=== PATIENT | female | born 1945 | race Caucasian/White ===

== ENCOUNTER 2016-07-06 07:51 | Emergency (ER) | payer MEDICARE, OTHER ==
[2016-07-06 08:04] VITALS: O2SAT 96
--- NOTE | 2016-07-06 08:32 | ERPHSYRPT ---
- History of Present Illness Time Seen by Provider: 07/06/16 08:22 Source: patient, family () Exam Limitations: no limitations Patient Subjective Stated Complaint: PT REPORTS HAVING RIGHT HIP REPLACEMENT 1 WEEK AGO-STATES THAT BETH A DAY AGO SHE NOTICED INCREASED SWELLING TO RIGHT LEG- DENIES FEVER-DENIES NUMBNESS OR TINLGING Triage Nursing Assessment: SWELLING NOTED TO RIGHT LEG-EXTREMITY IS PINK WRM ET DRY-WOUND WELL APPROXIMATED WITH NO DRAINAGE NOTED Physician History: Patient had right hip replacement 1 week ago; she is progressing slowly but noticed this morning there was increased pain and swelling in her right thigh and is concerned that she may have a DVT. No recent trauma. no fever or chills. No prior history of DVTs. Only taking aspirin for blood thinning. No recent falls or trauma. No other complaints. Method of Injury: unknown Occurred: this morning Quality: constant, aching, tightness Severity of Pain-Max: severe Severity of Pain-Current: moderate Lower Extremities Pain: hip: right (increased pain and tightness), thigh: right (increased pain and tightness) Modifying Factors: Improves With: movement (aggravates), pain medication (helps but hasn't taken today) Associated Symptoms: unable to bear weight, other (increased pain with movement passive or active) Allergies/Adverse Reactions: Penicillins Allergy (Verified 07/06/16 08:08) Home Medications: Aspirin 325 mg PO DAILY 07/06/16 [History] Hydrocodone Bit/Acetaminophen [[place] 10-325 Tablet] 1 each PO UD 07/06/16 [ History] Hx Tetanus, Diphtheria Vaccination/Date Given: No Hx Influenza Vaccination/Date Given: No Hx Pneumococcal Vaccination/Date Given: No Immunizations Up to Date: Yes - Review of Systems Constitutional: No Symptoms Eyes: No Symptoms Ears, Nose, & Throat: No Symptoms Respiratory: No Cough, No Dyspnea, No Wheezing Cardiac: No Chest Pain, No Palpitations, No Syncope, No Orthopnea Abdominal/Gastrointestinal: Constipation, No Abdominal Pain, No Nausea, No Vomiting, No Diarrhea Genitourinary Symptoms: No Symptoms Musculoskeletal: Joint Pain (right hip), No Back Pain, No Neck Pain, No Fall Skin: No Symptoms Neurological: No Symptoms Psychological: No Symptoms Endocrine: No Symptoms Hematologic/Lymphatic: No Symptoms Immunological/Allergic: No Symptoms - Past Medical History Pertinent Past Medical History: Yes Neurological History: No Pertinent History ENT History: No Pertinent History Cardiac History: High Cholesterol, Hypertension Respiratory History: No Pertinent History Endocrine Medical History: No Pertinent History Musculoskeletal History: Osteoarthritis GI Medical History: GERD, GI Bleed, Ulcer History: No Pertinent History Psycho-Social History: No Pertinent History Female Reproductive Disorders: No Pertinent History - Past Surgical History Past Surgical History: Yes Neuro Surgical History: No Pertinent History Cardiac: No Pertinent History Respiratory: No Pertinent History Gastrointestinal: No Pertinent History Genitourinary: No Pertinent History Musculoskeletal: No Pertinent History Female Surgical History: Hysterectomy, Tubal Ligation - Social History Smoking Status: Current every day smoker How long have you smoked: YRS Exposure to second hand smoke: Yes Alcohol Use: Socially Drug Use: none Patient Lives Alone: No Significant Family History: heart disease, hypertension - Female History Hx Now: No - Nursing Vital Signs Nursing Vital Signs: Initial Vital Signs Temperature 98.4 F Temperature Source Oral Pulse Rate 72 Respiratory Rate 16 Blood Pressure [] 120/72 Pain Intensity 3 - Physical Exam General Appearance: moderate distress (pain right hip and thigh), alert Eyes, Ears, Nose, Throat Exam: normal ENT inspection, TMs normal, pharynx normal , moist mucous membranes Neck Exam: normal inspection, non-tender, supple, full range of motion, No carotid bruit, No JVD Cardiovascular/Respiratory Exam: chest non-tender, normal breath sounds, regular rate/rhythm, heart sounds normal, no ecchymosis, no JVD, no M/R/G, no respiratory distress Gastrointestinal/Abdominal Exam: non-tender, soft, no organomegaly, No guarding Back Exam: normal inspection, normal range of motion, No CVA tenderness, No vertebral tenderness, No rash Hips Exam: right: limited range of motion (secondary to pain both active and passive), pain, swelling, other (incision healing well; no redness or drainage; slightly longer than left in total length), left: non-tender, normal inspection , normal range of motion, no evidence of injury Legs Exam: right leg: swelling (with respect to right), bilateral leg: non- tender, normal inspection, normal range of motion, no evidence of injury, other (no Homans sign left or right) Knees Exam: bilateral knee: non-tender, normal inspection, normal range of motion, no evidence of injury Ankle Exam: bilateral ankle: non-tender, normal inspection, normal range of motion, no evidence of injury Foot Exam: bilateral foot: non-tender, normal inspection, normal range of motion , no evidence of injury Neuro/Tendon Exam: normal sensation, normal motor functions, normal tendon functions, responds to pain Mental Status Exam: alert, oriented x 3, cooperative Skin Exam: normal color, warm, dry, No rash, No petechiae SpO2 Interpretation: normal SpO2: 96 Oxygen Delivery: Room Air - Course Nursing assessment & vital signs reviewed: Yes - Radiology Exams Right Hip X-ray Interpretation: Reviewed by me, Teleradiologist Report, Negative (post op changes only) Pelvis X-ray Interpretation: Reviewed by me, Teleradiologist Report, Negative, No Fracture, Other (post op changes on right; left with DJD) - Radiology Ultrasound Exam Right Venous Lower Extremity Ultrasound: tele radiology report, negative, Other (negative for DVT) Ordered Tests: Active Orders 24 hr Category Date Time Status Re-Check Vital Signs STAT Care 07/06/16 08:22 Active Regular Diet Diet 07/06/16 Lunch Active HIP UNI (2V) INCL PEL IF DONE Stat Exams 07/06/16 08:23 Completed VENOUS UNILAT/LIMITED EXTREMIT [US] Stat Exams 07/06/16 08:24 Completed BMP Stat Lab 07/06/16 09:17 Completed CBC W DIFF Stat Lab 07/06/16 09:17 Completed PROTIME WITH INR Stat Lab 07/06/16 09:17 Completed Lab/Rad Data: Laboratory Result Diagrams 07/06/16 09:17 07/06/16 09:17 Laboratory Results 07/06/16 07/06/16 07/06/16 Range/Units 09:17 09:17 09:17 WBC 9.1 (4.0-10.5) K/mm3 RBC 2.87 L (4.1-5.4) M/mm3 Hgb 8.7 L (12.0-16.0) gm/dl Hct 27.7 L (35-47) % MCV 96.5 (78-100) fl MCH 30.3 (26-32) pg MCHC 31.4 L (32-36) g/dl RDW 15.7 H (11.5-14.0) % Plt Count 300 (150-450) K/mm3 MPV 9.9 H (6-9.5) fl Gran % 61.4 (36.0-66.0) % Lymphocytes % 19.4 L (24.0-44.0) % Monocytes % 15.7 H (0.0-12.0) % Eosinophils % 3.4 (0.00-5.0) % Basophils % 0.1 (0.0-0.4) % Basophils # 0.01 (0-0.4) INR 1.06 (0.8-3.0) Sodium 139 (136-145) mEq/L Potassium 3.8 (3.5-5.1) mEq/L Chloride 100 (98-107) mEq/L Carbon Dioxide 29.3 (21-32) mEq/L Anion Gap 13.8 (5-15) MEQ/L BUN 14 (9-20) mg/dL Creatinine 1.05 (0.55-1.30) mg/dl Estimated GFR 55 ML/MIN Glucose 90 (70-110) MG/DL Calcium 8.7 (8.5-10.1) mg/dL reviewed - Progress Progress: improved, re-examined (After x-ray and ultrasound) Progress Note: 07/06/16 08:36 Discussed evaluation with patient; we'll get some labs x-ray and ultra; patient had not taken her medication and took it here this am; she did not want more at this time; will recheck after xr and US; labs pending; at bedside 07/06/16 09:20 rechecked after XR and Us and results shared; breakfast ordered and patient ambulated in chair for comfort; lab pending; will recheck 07/06/16 10:15 rechecked and reviewed results; with patient and family; treatment plan and d/c instructions given Counseled pt/family regarding: lab results, diagnosis, need for follow-up, rad results, smoking cessation - Departure Time of Disposition: 10:16 Departure Disposition: Home Clinical Impression: Joint pain of right hip on movement Condition: Stable Critical Care Time: No Referrals: CLINTON LOZA [Primary Care Provider] - Additional Instructions: continue post op instructions Follow-up with family doctor as directed. Call for appointment. Return if any problems. If you smoke please stop. Call or follow up with your family doctor for assistance if you need it to stop. Please wear your seatbelt when driving. Have a nice day. Thank you for allowing us to participate in your care today. :o) Dr Addy Martinez
--- NOTE | 2016-07-06 09:02 | XRAY ---
Indication: Right hip pain, swelling, and tightness following surgery last week. 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 Also osteopenia, moderate left hip degenerative changes, lower lumbar degenerative changes, and scattered vascular calcifications. Nothing acute.
[2016-07-06 09:20] LABS: BASOPHIL % 0.1 % (0.0-0.4); Eosinophil % 3.4 % (0.00-5.0); Granulocytes % 61.4 % (36.0-66.0); Lymphocytes % 19.4 % (24.0-44.0); Mean Cell Volume 96.5 fl (78-100); Mean Corpuscular Hemoglobin 30.3 pg (26-32); Mean Platelet Volume 9.9 fl (6-9.5); Monocytes % 15.7 % (0.0-12.0); Platelet Count 300 K/mm3 (150-450); Red Blood Count 2.87 M/mm3 (4.1-5.4); Red Cell Distribution Width 15.7 % (11.5-14.0); White Blood Count 9.1 K/mm3 (4.0-10.5)
--- NOTE | 2016-07-06 09:34 | XRAY ---
Indication: Postop swelling. Two-dimensional sonogram and color Doppler imaging of the major venous vessels of the right leg was performed. Comparison: None No thrombus seen in the examined deep venous vessels of the right leg including greater saphenous vein. Veins demonstrate normal compressibility. Venous waveforms are normal with and without augmentation. Impression: Right leg negative for DVT.
[2016-07-06 09:46] LABS: INR 1.06 (0.8-3.0); PROTIME 11.9 SECONDS (9.95-12.35)
[2016-07-06 09:50] LABS: ANION GAP 13.8 MEQ/L (5-15); Carbon Dioxide 29.3 mEq/L (21-32); Potassium 3.8 mEq/L (3.5-5.1)
[2016-07-06 10:04] VITALS: BP 120/72; PULSE 72
== END 2016-07-06 10:45 | disposition home or self-care (01) ==
LOC: ED 07:51
DX: M25.551 Pain in right hip (principal); Z96.641 Presence of right artificial hip joint
CPT/HCPCS: 36415; 73502; 80048; 85025; 85610; 93971; 99284

== ENCOUNTER 2016-07-16 08:50 | Emergency (ER) | payer MEDICARE, OTHER ==
[2016-07-16 09:12] VITALS: BP 155/66; O2SAT 97
--- NOTE | 2016-07-16 09:29 | ERPHSYRPT ---
- History of Present Illness Time Seen by Provider: 07/16/16 09:15 Source: patient Exam Limitations: clinical condition Patient Subjective Stated Complaint: pt arrived from home c/o nausea and frequency of urine for a couple days with back pain. she thinks she has a uti. has been taking nausea meds , and able to eat some Triage Nursing Assessment: pt alert, walked to room with walker, resp easy, skin w/d pale. dressing to right hip. slight edema to bothe legs which pt states has been normal for her Physician History: PATIENT COMPLAINS OF NAUSEA, SLIGHT BACK ACHE ASSOCIATED WITH URGENCY FOR 2-3 DAYS. DENIES FREQUENCY, DYSURIA OR HEMATURIA. Timing/Duration: day(s) Activites at Onset: none Quality: aching Onset Location: low back pain Pain Radiation: none Severity of Pain-Max: mild Severity of Pain-Current: mild Modifying Factors: Improves With: urinating Associated Symptoms: nausea, lower back pain Allergies/Adverse Reactions: Penicillins Allergy (Verified 07/16/16 09:00) Home Medications: Aspirin 325 mg PO DAILY 07/06/16 [History] Codeine Phosphate/APAP #3 [Tylenol #3 Tablet] 1 ea QID 07/16/16 [History] Hx Tetanus, Diphtheria Vaccination/Date Given: No Hx Influenza Vaccination/Date Given: No Hx Pneumococcal Vaccination/Date Given: No - Review of Systems Constitutional: No Fever, No Chills Eyes: No Symptoms Ears, Nose, & Throat: No Symptoms Respiratory: No Symptoms, No Cough, No Dyspnea Cardiac: No Symptoms, No Chest Pain, No Edema, No Syncope Abdominal/Gastrointestinal: No Symptoms, No Abdominal Pain, No Nausea, No Vomiting, No Diarrhea Genitourinary Symptoms: Urgency, Other (LOW BACK PAIN), No Dysuria Musculoskeletal: No Back Pain, No Neck Pain Skin: No Rash Neurological: No Dizziness, No Focal Weakness, No Sensory Changes Psychological: No Symptoms Endocrine: No Symptoms All Other Systems: Reviewed and Negative - Past Medical History Pertinent Past Medical History: Yes Neurological History: No Pertinent History ENT History: No Pertinent History Cardiac History: High Cholesterol, Hypertension Respiratory History: No Pertinent History Endocrine Medical History: No Pertinent History Musculoskeletal History: Osteoarthritis GI Medical History: GERD, GI Bleed, Ulcer History: No Pertinent History Psycho-Social History: No Pertinent History Female Reproductive Disorders: No Pertinent History - Past Surgical History Past Surgical History: Yes Neuro Surgical History: No Pertinent History Cardiac: No Pertinent History Respiratory: No Pertinent History Gastrointestinal: No Pertinent History Genitourinary: No Pertinent History Musculoskeletal: No Pertinent History Female Surgical History: Hysterectomy, Tubal Ligation - Social History Smoking Status: Current every day smoker How long have you smoked: YRS Exposure to second hand smoke: No Alcohol Use: Socially Drug Use: none Patient Lives Alone: No Significant Family History: heart disease, hypertension - Female History Hx Last Menstrual Period: post Hx Now: No - Nursing Vital Signs Nursing Vital Signs: Initial Vital Signs Temperature 97.7 F Temperature Source Oral Pulse Rate 76 Respiratory Rate 16 Blood Pressure [Right Arm] 155/66 Pain Intensity 3 - Physical Exam General Appearance: no apparent distress, alert Eye Exam: PERRL/EOMI, eyes nml inspection Ears, Nose, Throat Exam: normal ENT inspection, TMs normal, pharynx normal, moist mucous membranes Neck Exam: normal inspection, non-tender, supple, full range of motion Respiratory Exam: normal breath sounds, lungs clear, No respiratory distress Cardiovascular Exam: regular rate/rhythm, normal heart sounds, normal peripheral pulses Gastrointestinal/Abdomen Exam: soft, normal bowel sounds (NONTENDER), No tenderness, No mass Back Exam: normal inspection, normal range of motion, No CVA tenderness, No vertebral tenderness Extremity Exam: normal inspection, normal range of motion, pelvis stable Neurologic Exam: alert, oriented x 3, cooperative, veneer sander II-XII nml as tested, normal mood/affect, sensation nml, No motor deficits Skin Exam: normal color, warm, dry Lymphatic Exam: No adenopathy SpO2 Interpretation: normal SpO2: 97 Oxygen Delivery: Room Air Ordered Tests: Active Orders 24 hr Category Date Time Status Clean Catch Urine Specimen STAT Care 07/16/16 09:26 Active UA Stat Lab 07/16/16 09:30 Completed Lab/Rad Data: Laboratory Results 07/16/16 Range/Units 09:30 Ur Collection Type CLEAN CATCH Urine Color YELLOW (YELLOW) Urine Appearance CLEAR (CLEAR) Urine pH 6.5 (5-6) Ur Specific [place] 1.015 (1.005-1.025) Urine Protein NEGATIVE (Negative) Urine Glucose (UA) NEGATIVE (NEGATIVE) mg/dL Urine Ketones NEGATIVE (NEGATIVE) Urine Nitrite NEGATIVE (NEGATIVE) Urine Bilirubin NEGATIVE (NEGATIVE) Urine Urobilinogen 0.2 (0-1) mg/dL Urine WBC (Auto) NEGATIVE (NEGATIVE) Urine RBC (Auto) NEGATIVE (0-5) Rohan/ul Specimen Received [id number] - Progress Progress Note: 07/16/16 10:19 URINE IS NEGATIVE FOR INFECTION Blood Culture(s) Obtained: No Antibiotics given: No Counseled pt/family regarding: lab results, need for follow-up - Departure Time of Disposition: 10:20 Departure Disposition: Home (1020) Clinical Impression: Urgency incontinence Condition: Stable Critical Care Time: No Additional Instructions: FOLLOWUP WITH YOUR FAMILY PHYSICIAN FOR EVALUATION AND REFERRAL TO UROLOGIST. RETURN TO EMERGENCY FOR ONSET OF FEVER AND PERSISTENT URINARY SYMPTOMS.
[2016-07-16 10:00] LABS: COMPLETE URINE MICROSCOPIC? NO; Collection Type CLEAN CATCH; Ph 6.5 (5-6)
[2016-07-16 10:34] VITALS: PULSE 72
== END 2016-07-16 10:32 | disposition home or self-care (01) ==
LOC: ED 08:50
DX: R32 Unspecified urinary incontinence (principal); R11.0 Nausea; M54.5 Low back pain
CPT/HCPCS: 81002; 99283

== ENCOUNTER 2018-11-01 05:51 | Day surgery (SDC) | payer MEDICARE, OTHER ==
[2018-11-01] MEDS ORDERED: Lactated Ringers 1,000 ML IV SCH (07:00)
[2018-11-01] MEDS ORDERED: DIPRIVAN 200 MG/20 ML IV ONE ×2 (07:23→07:46)
[2018-11-01] MEDS ORDERED: Ketamine HCl 50 MG/ML ONE (07:24)
[2018-11-01] MEDS ORDERED: SUBLIMAZE 100 MCG/2 ML ONE (07:56)
--- NOTE | 2018-11-01 09:13 | OP ---
SURGERY DATE/TIME: 11/01/2018729 PREOPERATIVE DIAGNOSIS: Dyspepsia, bloating and abdominal pain. POSTOPERATIVE DIAGNOSES: 1) Esophagitis. 2) Rush's esophagus. 3) Esophageal ulcer. 4) Gastritis. 5) Duodenitis. 6) Sigmoid diverticulosis, mild. PROCEDURES: 1) Esophagogastroduodenoscopy with cold forceps biopsy. 2) Colonoscopy. SURGEON: Dr. Orellana. ANESTHESIA: Medications were given by the anesthesia department. HISTORY: The patient is a 72 year old white female presenting now for endoscopic evaluation. She reports complaints of abdominal pain, discomfort and bloating despite medication. The patient also has never had a colon examination performed. She desired to have the colon performed while we also did the upper examination. The patient was appraised of the risks of the procedure including the risk of perforation, phlebitis, untoward reaction to medication, bleeding and missed lesions. The patient verbalized her understanding and desired to have the procedure performed. DESCRIPTION OF PROCEDURE: The patient was given the medications by the anesthesia department. She had continuous pulse oximetry, ECG monitoring, intermittent blood pressure monitoring and tidal CO2 monitoring during the examination. She was placed in the left lateral decubitus position. A bite block was placed and the flexible Olympus gastroscope was used to intubate the oropharynx. A view of the larynx was obtained and was normal. The scope was easily introduced in the esophagus. There appeared to be the appearance of Rush's metaplasia approximately two-thirds of the esophagus. There was also noted to be a small esophageal ulcer noted without any evidence of bleeding, appeared to have a benign appearance. The scope entered the stomach where normal gastric rugal folds were seen and these distended nicely with insufflation of air. There was some generalized erythema throughout the stomach. The pylorus is encountered and intubated. The duodenum inspected and also found to be erythematous as well. The scope was pulled back and retroflex view was obtained of the lesser curvature, fundus and cardia regions of the stomach and these appeared to be otherwise normal. The scope was then redirected towards the gastric antrum and biopsies were obtained to rule out the presence of Helicobacter pylori-type organisms. The scope was withdrawn back to the esophagus. Biopsies were obtained to rule out the presence of dysplasia and what appeared to be Rush's metaplasia. The scope removed from the patient. Next, a digital rectal examination was performed and revealed normal anal sphincter tone and no masses. The flexible Olympus pediatric colonoscope was used to intubate the rectum. A view of the colon was developed sequentially to the cecum. Upon insertion and withdrawal was noted mild sigmoid diverticulosis otherwise no other mucosal lesions were encountered. The scope was removed from the patient who tolerated the procedure well and was sent back to OP recovery in good condition. The prep was noted to be fair.
[2018-11-01 09:20] VITALS: BP 170/92; PULSE 66; O2SAT 94
== END 2018-11-01 09:35 | disposition home or self-care (01) ==
LOC: SDC 05:51
PROVIDERS: ATTEND Family Medicine
DX: K20.9 Esophagitis, unspecified (principal); K22.70 Barrett's esophagus without dysplasia; K29.80 Duodenitis without bleeding; K57.30 Diverticulosis of large intestine without perforation or abscess without bleeding; K29.70 Gastritis, unspecified, without bleeding
CPT/HCPCS: 88305; 99100; J2704; J3010

== ENCOUNTER 2020-02-14 10:48 | Emergency (ER) | payer MEDICARE, OTHER ==
[2020-02-14] MEDS ORDERED: PERCOCET TABLET 5/325MG PO ONE (11:28)
[2020-02-14] MEDS ORDERED: PERCOCET TABLET 5/325MG ONE (11:32)
--- NOTE | 2020-02-14 11:55 | ERPHSYRPT ---
- History of Present Illness Time Seen by Provider: 02/14/20 11:10 Source: patient Exam Limitations: no limitations Patient Subjective Stated Complaint: L sided back pain Triage Nursing Assessment: pt to ED c/o L sided back pain onset "sometime before Wednesday." rates 5/10 at rest and 10/10 when moving from standing/sitting or back. sharp shooting pain at that time. reports arthritic pain in R back chronic and bilat knees. reports window cleaning when pain started. Physician History: 74 years old female with history of chronic low back pain presented in the ER with worsening low back pain for the last 5 days after she tried to lift it window and had to hold it for few minutes and small twisting movements. Pain is sudden onset after words, dull to sharp in nature, bilateral sacroiliac area. Aggravated with walking and especially getting up makes it worse, partial relief with resting and taking Tylenol. Denies any radiation of pain or loss of bowel or bladder control. No numbness tingling or weakness of lower extremities. Patient does have chronic back pain but and this is worse than usual. Denies any sick contact. Timing/Duration: day(s) (5), sudden, worse Method of Injury: lifting, twisted Quality: sharp, aching Back Pain Location: lumbar spine, paraspinous muscles Severity of Pain-Max: moderate Severity of Pain-Current: mild Modifying Factors: Improves With: immobilization, rest. Worsens With: movement Associated Symptoms: lower back pain, No numbness in legs/feet, No weakness, No sensory/motor loss Allergies/Adverse Reactions: Penicillins Allergy (Verified 11/01/18 06:12) Home Medications: Lisinopril/Hydrochlorothiazide [Lisinopril-Hctz 20-12.5 mg Tab] 1 each PO DAILY 07/20/18 [History] Famotidine [Pepcid] 40 mg PO DAILY 02/14/20 [History] Fenofibrate Nanocrystallized [Fenofibrate] 145 mg PO DAILY 02/14/20 [History] Omeprazole 40 mg PO DAILY 02/14/20 [History] Hx Tetanus, Diphtheria Vaccination/Date Given: No Hx Influenza Vaccination/Date Given: No Hx Pneumococcal Vaccination/Date Given: No Immunizations Up to Date: No Travel Risk - International Travel Have you traveled outside of the country in past 3 weeks: No - Coronavirus Screening Are you exhibiting any of the following symptoms?: No Close contact with a COVID-19 positive Pt in past 14-21 Days: No - Review of Systems Constitutional: No Symptoms Eyes: No Symptoms Ears, Nose, & Throat: No Symptoms Respiratory: No Symptoms Cardiac: No Symptoms Abdominal/Gastrointestinal: No Symptoms Genitourinary Symptoms: No Symptoms Musculoskeletal: Back Pain Skin: No Symptoms Neurological: No Symptoms Psychological: No Symptoms Hematologic/Lymphatic: No Symptoms - Past Medical History Pertinent Past Medical History: Yes Neurological History: No Pertinent History ENT History: No Pertinent History Cardiac History: High Cholesterol, Hypertension Respiratory History: No Pertinent History Endocrine Medical History: No Pertinent History Musculoskeletal History: Osteoarthritis GI Medical History: GERD, GI Bleed, Ulcer History: No Pertinent History Psycho-Social History: No Pertinent History Female Reproductive Disorders: No Pertinent History - Past Surgical History Past Surgical History: Yes Neuro Surgical History: No Pertinent History Cardiac: No Pertinent History Respiratory: No Pertinent History Gastrointestinal: No Pertinent History Genitourinary: No Pertinent History Musculoskeletal: No Pertinent History Female Surgical History: Hysterectomy, Tubal Ligation - Social History Smoking Status: Current every day smoker How long have you smoked: YRS Exposure to second hand smoke: Yes Alcohol Use: Socially Drug Use: none Patient Lives Alone: Yes () Significant Family History: heart disease, hypertension - Female History Hx Now: No - Nursing Vital Signs Nursing Vital Signs: Initial Vital Signs Temperature 98.2 F 02/14/20 11:03 Pulse Rate 93 H 02/14/20 11:03 Respiratory Rate 18 02/14/20 11:03 Blood Pressure 161/105 02/14/20 11:03 O2 Sat by Pulse Oximetry 95 02/14/20 11:03 Pain Scale Pain Intensity [Left Lower 5 Back] Pain Intensity 5 - Physical Exam General Appearance: no apparent distress, alert Eye Exam: eyes nml inspection Ears, Nose, Throat Exam: normal ENT inspection Neck Exam: normal inspection, supple, full range of motion Respiratory Exam: normal breath sounds, lungs clear Cardiovascular Exam: regular rate/rhythm, normal heart sounds Gastrointestinal Exam: soft, normal bowel sounds, No tenderness Back Exam: normal inspection, vertebral tenderness, muscle spasm (Sacroiliac area bilaterally.), point tenderness Extremity Exam: normal inspection, normal range of motion, pelvis stable Neurologic Exam: alert, oriented x 3, cooperative, ophthalmology technician II-XII nml as tested, normal mood/affect Skin Exam: normal color, warm SpO2 Interpretation: normal SpO2: 95 O2 Delivery: Room Air - Course Nursing assessment & vital signs reviewed: Yes Ordered Tests: Active Orders 24 hr Category Date Time Status LUMBAR SPINE W/O [CT] Stat Exams 02/14/20 11:28 Completed Medication Summary Discontinued Medications Generic Name Dose Route Start Last Admin Trade Name Thelma PRN Reason Stop Dose Admin Oxycodone/Acetaminophen 1 tab 02/14/20 11:28 02/14/20 11:36 Percocet Tablet 5/325mg PO 02/14/20 11:29 1 tab STAT ONE Administration Oxycodone/Acetaminophen Confirm 02/14/20 11:32 Percocet Tablet 5/325mg Administered 02/14/20 11:33 Dose 1 tab .ROUTE .STK-MED ONE - Progress Progress: improved, pain not gone completely, re-examined Progress Note: 02/14/20 12:54 74 years old is evaluated for low back pain. She has tenderness and lower lumbar spine and paraspinal area/sacroiliac area bilaterally. Negative neuro exam in lower extremities. She is given oral Percocet, on reevaluation pain is better but not completely improved. I have obtained CT lumbar spine without contrast which showed some L5 endplate fracture which seems old and has some other degenerative changes but no acute compression/fracture/subluxation noticed. Discussed with patient in detail about pain control and using walker/cane all the time for ambulation to avoid a fall. I would give her a few pain pills to go home and lidocaine patches to use so that she does not have to take as many pain medications. Discussed risk associated with pain medications including fall and resultant injuries, she wants to try pain medicines. She seems to be reasonable person. I would give her [place] initially and lidocaine patches. Discussed signs symptoms of worsening including cauda equina needing return to ER which she seems understanding. Stable for discharge. Counseled pt/family regarding: diagnosis, need for follow-up, rad results - Departure Departure Disposition: Home Clinical Impression: Low back pain Qualifiers: Chronicity: acute Back pain laterality: bilateral Sciatica presence: without sciatica Qualified Code(s): M54.5 - Low back pain Condition: Stable Critical Care Time: No Referrals: CLINTON LOZA [Primary Care Provider] - Follow Up with PCP/3 days Instructions: Low Back Pain (DC) Additional Instructions: Use cane/walker all the time for ambulation. Take pain medications only as needed. Avoid any exertional activities. Return to ER for worsening low back pain with numbness tingling weakness of lower extremities/loss of bowel or bladder control. Follow-up with your primary care physician for reevaluation in 2 to 3 days. Prescriptions: Hydrocodone/APAP 5-325 Tab^^^ [[place] 5-325 Tablet^^^] 1 tab PO Q6HPRN PRN #12 tablet MDD 6 PRN Reason: Pain Lidocaine 1 each TP DIRECTIONS UNKNOWN 30 Days #30 adh..patch
--- NOTE | 2020-02-14 12:33 | XRAY ---
Indication: Back pain following twisting injury 2 days ago. Multiple contiguous axial images obtained through the lumbar spine. Two-dimensional sagittal and coronal reformatted images obtained. Comparison: CT abdomen/pelvis February 18, 2016. Osseous structures remain demineralized. Stable L3-S1 broad-based disc bulge and L3-L4/L5-S1 degenerative vacuum disc phenomena. New L4-L5 degenerative vacuum disc phenomena. L4-L5 level again demonstrates severe spinal canal stenosis due to combination of disc bulge and degenerative facet/ligament flavum hypertrophy. No large disc herniation. Sagittal and coronal reformatted images demonstrates stable normal lumbar lordosis, minimal grade 1 L4 spondylolisthesis, and inferior L3 Schmorl node. Superior endplate L5 demonstrates new remote-appearing concave fracture with 50-75% height loss. Elsewhere no acute compression fracture or new subluxation. Visualized noncontrasted soft tissues again demonstrates hiatal hernia, small bilateral adrenal adenomas, small lobular left kidney with punctate calcifications, and scattered aortoiliac calcifications. Impression: 1. New remote-appearing L5 superior endplate fracture without spinal canal or foraminal encroachment. 2. Again L3-L5 degenerative disc disease. Greatest extent remains at L4-L5 level where there is spinal canal stenosis. 3. Incidental osteopenia, minimal grade 1 L4 spondylolisthesis, prominent L3 Schmorl node, and soft tissue findings.
[2020-02-14 13:25] VITALS: BP 146/92; PULSE 86; O2SAT 96
== END 2020-02-14 13:25 | disposition home or self-care (01) ==
LOC: ED 10:48
DX: M54.5 Low back pain (principal)
CPT/HCPCS: 72131; 99283; A9270-GY